=== PATIENT | male | born 1945 | race Caucasian/White ===

== ENCOUNTER 2017-04-30 08:30 | Inpatient (IN) | payer OTHER, MEDICARE, BC ==
[~2017-04-30] VITALS: Ht 172.7 cm; Wt 104.7 kg
--- NOTE | ~2017-04-30 | OR ---
PATIENT'S NAME: KEVIN EUBANKS [facility] AGE: 72 Y [address] ROOM: [address] [address] [place] [facility] [place]: 04/30/2017 OR/Procedure Report DISCHARGE DATE: 05/02/2017 FAMILY PHYSICIAN: Bryan Cruz MD ATTENDING PHYSICIAN: Eren Carranza SURGEON: Oliver Santana MD FRAMING CARPENTER: DATE OF PROCEDURE: 04/30/2017 REFERRING PHYSICIAN: Martine Belle APRN, [place] PREOPERATIVE DIAGNOSIS: Acute appendicitis. POSTOPERATIVE DIAGNOSIS: Acute suppurative appendicitis. PROCEDURE: Laparoscopic appendectomy. ANESTHESIA: General with 15 mL of 0.5% Marcaine. SPECIMEN: Appendix. INDICATIONS: The patient is a 72-year-old young man, who presented to Martine Belle APRN, nurse practitioner in [place] with a less than 24-hour history of abdominal pain, which settled in the right lower quadrant, CT confirmation of acute appendicitis. However, the patient [place] [address]. We admit him to the hospital. We waited until the 24 hour. After his last dose which was approximately 8:00 p.m. this evening. At that time, we elected to avoid rupture. We elected to proceed with laparoscopic appendectomy. The procedure, benefits, and risks including his increased risk of bleeding complications were explained to the patient. DESCRIPTION OF PROCEDURE: After informed consent, the patient was taken to the operating room. After general endotracheal anesthesia, the patient's abdomen was prepped and draped into a sterile field. Local anesthetic infiltrated. Prior to each incision, the first one made below the umbilicus, carried down to identify the anterior fascia through which a Veress needle inserted. Pneumoperitoneum created. A 5-mm trocar and laparoscope inserted. Safe entry was noted. Right upper quadrant 5 mm and suprapubic 12 mm port were placed. The appendix was obviously inflamed and suppurative findings around it. Once we elevated up the dilated appendix, we were able to create a window at the base of the appendix and divided the mesoappendix with the Endo- MARINA 35. The appendiceal stump was then exposed and then divided with the Endo- MARINA 35 clip. The appendix was placed into an EndoCatch bag and brought out through the 12 mm fascia defect. We irrigated the right lower quadrant with the 2 L of irrigation fluid until clear. Hemostasis noted. No other PATIENT'S NAME: KEVIN EUBANKS [facility] AGE: 72 Y [address] ROOM: [address] [address] [place] [facility] [place]: 04/30/2017 OR/Procedure Report DISCHARGE DATE: 05/02/2017 FAMILY PHYSICIAN: Bryan Cruz MD ATTENDING PHYSICIAN: Eren Carranza pathology evident in the right lower quadrant. The trocars were removed. The pneumoperitoneum released. The 12 mm port site was closed with 0 Vicryl and skin incision was closed subcuticular 4-0 Vicryl. Steri-Strips sterile dressings applied. The patient tolerated procedure well and transferred to recovery in stable condition. OLIVER SANTANA MD WTS/modl /[id number] d: 05/05/17 1051 t: 05/07/17 1744, OPERATIVE SUMMARY
--- NOTE | ~2017-04-30 | HP ---
PATIENT'S NAME: KEVIN EUBANKS [facility] AGE: 72 Y [address] ROOM: [address] [address] LOCATION: [facility] [place] ADMIT DATE: 04/30/2017 History & Physical DISCHARGE DATE: FAMILY PHYSICIAN: Bryan Cruz MD ATTENDING PHYSICIAN: RENUKA CARRANZA DATE OF SERVICE: 04/30/2017 CHIEF COMPLAINT: Acute appendicitis. HISTORY OF PRESENT ILLNESS: This is a 72-year-old male with a history of chronic tobacco use and COPD as well as atrial fibrillation, on Eliquis; who experienced extreme right lower quadrant pain starting last night around 5 o'clock. He walked himself to his local emergency room where a CT scan showed acute appendicitis and leukocytosis. The patient denies any fevers or chills. He denies any associated nausea or vomiting. He states his right lower quadrant pain is nonradiating. It is relative well controlled at rest, but as soon as it is palpated, has extreme painfulness. He also complains of feeling constipated, but did have a bowel movement yesterday. Of important note, his last dose of Eliquis was taken last night at 8:00 p.m. The patient denies any lightheadedness or dizziness. No recent weight loss or weight gain. No fevers or chills. No recent illnesses. He does not complaint any sore throat. He does have a chronic cough that is occasionally productive, but no acute problems. He denies any shortness of breath, but does gets dyspnea on exertion, but can typically walk at least 2 to 3 blocks without stopping. He denies any chest pain, palpitations, or fluttering feelings. He denies any history of heart murmurs. Abdominal complaints as above with no history of melena or infectious diarrhea. He does have a history of BPH, but denies any urgency or nocturnal frequency. He denies any burning or painfulness with urination. He does complain of general arthritic pains in multiple joints, but is nonlimiting. He denies any numbness or tingling anywhere. He is a relatively active and independent 72-year-old male. REVIEW OF SYSTEMS: All review of systems was completed and deemed negative other than mentioned above in the HPI. ALLERGIES: NO KNOWN MEDICAL ALLERGIES. HOME MEDICATIONS: PATIENT'S NAME: KEVIN EUBANKS [facility] AGE: 72 Y [address] ROOM: [address] [place] [address] LOCATION: [facility] [place] ADMIT DATE: 04/30/2017 History & Physical DISCHARGE DATE: FAMILY PHYSICIAN: Bryan Cruz MD ATTENDING PHYSICIAN: RENUKA CARRANZA 1. Acetaminophen 1000 mg p.o. every 6 hours as needed. 2. Albuterol HFA inhaler 2 puffs inhalation 4 times daily as needed for shortness of breath. 3. Amlodipine 5 mg p.o. every day. 4. Eliquis 5 mg p.o. twice daily. Note last taken dose at 8:00 p.m. on 04/29/2017. 5. Ascorbic acid 500 mg p.o. every day. 6. Excedrin Extra Strength, 1 tablet p.o. twice daily as needed. 7. Atorvastatin 10 mg p.o. every night at bedtime. 8. Symbicort 160/4.5 mcg inhaler 2 puffs inhalation twice daily. 9. Vitamin D3, 1000 units p.o. every day. 10. Flexeril 10 mg p.o. 3 times daily. 11. Ferrous sulfate 325 mg p.o. daily. 12. Osteo Bi-Flex 1 tablet p.o. every day as needed. 13. Lisinopril and hydrochlorothiazide 20/25 mg 1 tablet p.o. every day. 14. Multivitamin 1 tablet p.o. every day. 15. Aleve PM 2 tablets p.o. every night at bedtime as needed. 16. Aleve 440 mg p.o. twice daily as needed. 17. Ohiopyle-3 fatty acid (fish oil) capsule 1000 mg p.o. every day. PAST MEDICAL HISTORY: To include: 1. COPD. 2. Atrial fibrillation, on long-term anticoagulation. 3. Hyperlipidemia. 4. Essential hypertension. 5. BPH. 6. Tobacco use. 7. Alcohol use. 8. Obesity with BMI of 35.1. PAST SURGICAL HISTORY: 1. Right ankle ORIF. 2. TURP. 3. Basal cell carcinoma removal. SOCIAL HISTORY: Relatively independent and retired 72-year-old male, who lives in [place], [place], who has spent most of his life in [place] working in [employer]. He is a chronic smoker which he started at the age of 33, smoking a pack a day, but has recently backed off and he smokes only about a pack a week. He does use alcohol typically 4 days a week. He has multiple drinks of whiskey 4 to 6 in quantity. His last drink was a beer last night. He denies any illicit drug use. PATIENT'S NAME: KEVIN EUBANKS [facility] AGE: 72 Y [address] ROOM: [address] [place], [place] [address] LOCATION: [facility] [place] ADMIT DATE: 04/30/2017 History & Physical DISCHARGE DATE: FAMILY PHYSICIAN: Bryan Cruz MD ATTENDING PHYSICIAN: RENUKA CARRANZA FAMILY HISTORY: The patient has two brothers who underwent coronary artery bypass. Otherwise, reviewed and deemed noncontributory. There is no family cancer. PHYSICAL EXAMINATION: GENERAL: This is a 72-year-old obese white male, who appears and looks his stated age. HEENT: His head is normocephalic and atraumatic. Eyes; extraocular movements are intact. His pupils are equal, round, and reactive to light and accommodation. His oropharynx is visualized with good dentition. Mucosa is moist. NECK: Supple. LUNGS: Reveal a faint expiratory wheeze in the bilateral lower lobes, but otherwise, rest is clear. He has equal and symmetric expansion and unlabored breathing pattern. HEART: Irregularly irregular. No gallops. No murmur noted. He has trace pedal edema bilaterally to his lower extremities. No JVD. GASTROINTESTINAL: His abdomen is round and relatively soft. He does complain of significant point tenderness in the right lower quadrant with light palpation. Worsening with deeper palpation. He has no CVA tenderness. He does have bowel sounds in each quadrant. GENITOURINARY: Deferred. EXTREMITIES: Reveal no clubbing or cyanosis. He does have soft bilateral calves. He has a right ankle deformity. Peripheral pulses are 2+. SKIN: Reveals a small scabbed area on his right knee that appears to be healing. PSYCHIATRIC: Mood is good. LABORATORY DATA: From outlying facility shows a lactic acid of 1.4. CMS panel shows a sodium of 136, potassium 4.0, chloride of 96, carbon dioxide of 27, glucose of 129, BUN of 14, creatinine of 0.90, and calcium of 10.4. Protein was 7.8, albumin of 4.0, and bilirubin of 0.9. ALT 40, AST of 26, and alkaline phosphatase of 87. Amylase was 65 and lipase was 45. CBC shows a white blood cell count of 24.1 with granulocytes shifted at 84%. His hemoglobin is 14.8, hematocrit of 44.0, and platelet count of 298,000. Urinalysis shows yellow, hazy urine with a negative glucose, negative bilirubin, and negative ketones. Specific gravity of 1.015, negative for blood, and negative for protein. There were no nitrites, leukocytes, yeasts, mucus, or bacteria noted. DIAGNOSTIC STUDIES: 1. EKG shows atrial fibrillation with a rate of 98 beats per minute. No acute ST changes noted. PATIENT'S NAME: KEVIN EUBANKS [facility] AGE: 72 Y [address] ROOM: [place] [address] LOCATION: [facility] [place] ADMIT DATE: 04/30/2017 History & Physical DISCHARGE DATE: FAMILY PHYSICIAN: Bryan Cruz MD ATTENDING PHYSICIAN: RENUKA CARRANZA 2. A CT scan of the abdomen and pelvis reveals a dilated, inflamed, fully filled appendix up to 17 mm in diameter with mild adjacent inflammatory fat induration. Other significance, he has mild prostate hypertrophy and left colonic diverticulosis. IMPRESSION AND PLAN: This is a 72-year-old male who will be admitted to be inpatient in the Medical- Surgical unit with acute appendicitis: 1. Acute appendicitis, needs an urgent appendectomy. However, because the patient is on Eliquis with the last dose being at 8:00 p.m., it would be okay to proceed to surgery in 24 to 48-hour window. He will need to be kept nothing by mouth and hydrated with IV fluids. We will start him on Zosyn 3.375 mg every 6 hours and give IV pain medicine support with morphine. We will also further evaluate laboratories to ensure he is optimal for expected surgery. 2. Sepsis secondary to acute appendicitis. Plan for urgent appendectomy as above. 3. Paroxysmal atrial fibrillation, while on Eliquis. We will continue to rate control his arrhythmia. We will optimize his electrolytes. We will keep him on telemetry and monitor accordingly. Would recommend resuming his Eliquis in the 24 to 48-hour period postoperatively. 4. Chronic obstructive pulmonary disease. We will go ahead and continue his home inhalers to include Symbicort as scheduled as well as his rescue inhaler of albuterol. We will encourage good pulmonary toileting education and monitor for any signs of exacerbation. 5. Essential hypertension. To continue his home amlodipine and monitor his pressures. We will hold on his home lisinopril and hydrochlorothiazide for now and resume postoperatively or when appropriate. 6. Hyperlipidemia. We will give him lifestyle and diet and exercise modification education as well as to continue his statin for now. We will hold on his fish oil. 7. Tobaccoism. Cessation education was given. Offered nicotine patch and he refused at this point in time. 8. Obesity with a BMI of 35.1, lifestyle and diet modification education. 9. Alcohol use. He does consume more than the recommended daily amount. He has never had any withdrawal in the past, but, however, needs to be closely observed during his hospitalization for withdrawal. 10. History of benign prostatic hypertrophy. 11. General arthritis, unspecified sites. We will continue to use multivitamin supplementation as well as general pain support. 12. Deep venous thrombosis prophylaxis. Will be maintained with pneumatic compression devices as anticoagulation is contraindicated with planned procedure. 13. Code Status: Full code. The above line of management was discussed with the patient as well reviewed PATIENT'S NAME: KEVIN EUBANKS [facility] AGE: 72 Y [address] ROOM: [place] [address] LOCATION: [facility] [place] ADMIT DATE: 04/30/2017 History & Physical DISCHARGE DATE: FAMILY PHYSICIAN: Bryan Cruz MD ATTENDING PHYSICIAN: RENUKA CARRANZA with Dr. Carranza. All questions were answered with statements of satisfaction. Dr. Lara has already seen the patient, and consultation for surgical needs. RODRÍGUEZ GOMEZ APRN, APRN FOR MD KIT DUMONT/kareen /[id number] D: 83 HISTORY & PHYSICAL
--- NOTE | ~2017-04-30 | CON ---
PATIENT'S NAME: GRADY EUBANKS [facility] AGE: 72 Y [address] ROOM: [place] [address] LOCATION: [facility] [place] ADMIT DATE: 04/30/2017 Consultation DISCHARGE DATE: FAMILY PHYSICIAN: Bryan Cruz MD ATTENDING PHYSICIAN: RENUKA AMARO DATE OF CONSULTATION: 04/30/2017 REFERRING PHYSICIAN: JORGE ALBERTO PAINTER MD REASON FOR CONSULTATION: Acute appendicitis. HISTORY OF PRESENT ILLNESS: Grady Eubanks is a 72-year-old male who transferred to [facility] from [place] today after a CT scan showed acute appendicitis. The patient states that he was in his usual state of health yesterday, but around 5 p.m., he started to not feel well. By 7 p.m., he had pain in the right lower quadrant. Denies any nausea or vomiting. Has not passed any flatus today. No bowel movement today. He has been voiding okay. The patient was seen in [place] where white blood cell count was elevated at 24,100. Liver function tests were normal. The patient had a CT scan done that showed a dilated, inflamed, fluid-filled appendix up to 17 mm in diameter with mild adjacent inflammatory fat induration. The appendix is located in the anterior right lower quadrant medial and inferior to the cecum. No free intraperitoneal air, free fluid, or abscess was seen. The prostate was mildly enlarged at 5 cm. The patient was transferred to [facility] for further evaluation and surgical treatment options. It is noted that the patient is on Eliquis and took his last pill at 8 p.m. last evening. PAST MEDICAL HISTORY: ALLERGIES: NONE. MEDICATIONS: Include: 1. Lisinopril/hydrochlorothiazide one tablet p.o. daily. 2. Lipitor 10 mg p.o. q.h.s. 3. Norvasc 5 mg p.o. daily. 4. Multivitamin one tablet p.o. daily. 5. Glucosamine one tablet p.o. daily. 6. Tylenol Extra Strength 1000 mg p.o. q.6 hours p.r.n. pain. 7. Excedrin Extra Strength one tablet p.o. b.i.d. p.r.n. pain. 8. Aleve PM 2 tablets p.o. q.h.s. p.r.n. insomnia. 9. Ferrous sulfate 325 mg p.o. daily. PATIENT'S NAME: GRADY EUBANKS [facility] AGE: 72 Y [address] ROOM: [address] [place], [place] [address] LOCATION: [facility] [place] ADMIT DATE: 04/30/2017 Consultation DISCHARGE DATE: FAMILY PHYSICIAN: Bryan Cruz MD ATTENDING PHYSICIAN: RENKUA AMARO 10. Fish oil 1000 mg p.o. daily. 11. Aleve 440 mg p.o. b.i.d. p.r.n. pain. 12. Ascorbic acid 500 mg p.o. daily. 13. Flexeril 10 mg p.o. t.i.d. p.r.n. pain. 14. Eliquis 5 mg p.o. b.i.d. 15. Proventil 2 puffs inhaler q.i.d. p.r.n. shortness of breath. 16. Symbicort 2 puffs inhaler b.i.d. 17. Vitamin D3 at 1000 units p.o. daily. ILLNESSES: Include hypertension, hypercholesterolemia, COPD, atrial fibrillation, and skin cancer on the nose. OPERATIONS: Transurethral resection of the prostate, excision of the skin cancer from the tip of his nose, and ankle fracture. The patient states that he has never had a colonoscopy done, but has had a partial scope, which I assume is a flexible sigmoidoscopy. FAMILY HISTORY: Two brothers had myocardial infarctions at the age of 64. SOCIAL HISTORY: The patient is single. He lives in [place], [place], [facility]. He is retired from [employer] in [place], [place]. He currently smokes less than a pack of cigarettes per week. He had a maximum of a pack per day at one point in his life. He drinks alcohol, 3 to 4 alcoholic beverages 3 to 4 nights per week. REVIEW OF SYSTEMS: The patient states that he was doing fairly well until this happened last evening. His weight has increased with decreased activity due to pain in his knees and ankles from arthritis. His appetite had been good. He denies any recent sinus congestion, ear pain, or throat pain. Denies shortness of breath. He states that he is able to mow his yard without difficulty. Denies chest pain. Denies change of bowel habits or blood in his stool. He has been voiding well. PHYSICAL EXAMINATION: VITAL SIGNS: Per nursing sheet. GENERAL: A 72-year-old male who is alert, oriented, pleasant, cooperative, in good spirits. HEENT: Eyes, ears, nose, and throat are grossly normal. Teeth have poor dentition. LUNGS: Diminished bilaterally with mild expiratory wheeze noted on the right PATIENT'S NAME: GRADY EUBANKS [facility] AGE: 72 Y [address] ROOM: [address] [address] LOCATION: [facility] [place] ADMIT DATE: 04/30/2017 Consultation DISCHARGE DATE: FAMILY PHYSICIAN: Bryan Cruz MD ATTENDING PHYSICIAN: RENUKA AMARO side more than the left. HEART: Irregular. ABDOMEN: Quiet. Mild distention with tenderness in the right lower quadrant. Localized peritoneal signs. NEUROLOGIC: The patient appears to move extremities equally. LABORATORY WORK: White blood cell count 24.1, hemoglobin 14.8, hematocrit 44, and platelets 298. Sodium 136, potassium 4.0, chloride 96, CO2 of 27, glucose 129, BUN 14, and creatinine 0.9. Total bilirubin 0.9. Alkaline phosphatase 87, AST 26, and ALT 40. Amylase [address] scan per HPI. ASSESSMENT: A 72-year-old male with: 1. Acute appendicitis. 2. Atrial fibrillation, on Eliquis. 3. Chronic obstructive pulmonary disease. 4. Hypertension. 5. Hypercholesterolemia. PLAN: I discussed with the patient the findings of appendicitis on his CT scan. Dr. Santana had actually evaluated the patient earlier and had discussed with him the findings and recommendations. After discussion with the hospitalist, it is best to wait at least 24 hours for the Eliquis if we can. At this time, we are trying to decide what is going to be best in regard to bleeding risk versus risk for perforated appendicitis. Dr. Santana will review over the CT imaging and make a decision on whether we proceed this evening or tomorrow morning. I discussed with the patient risk of bleeding, risk of infection, risk of injury to other structures, heart problems, lung problems, etc. I discussed the laparoscopic approach. I discussed the potential need for blood transfusion as sometimes patients on blood thinners will ooze after the procedure and not necessarily during. He could potentially form a hematoma that could get infected and needs to be drained. I discussed that typically a person with uncomplicated appendicitis could potentially go home within 24 hours after surgery, but given the Eliquis, he may need to be observed for a longer period. The patient's questions and concerns were addressed. Again, Dr. Santana was involved in the assessment and plan and is available for supervision. EDWAR ARCE PA-C FOR JAVON SANTANA MD PATIENT'S NAME: GRADY EUBANKS [facility] AGE: 72 Y [address] ROOM: [place] [address] LOCATION: [facility] [place] ADMIT DATE: 04/30/2017 Consultation DISCHARGE DATE: FAMILY PHYSICIAN: Bryan Cruz MD ATTENDING PHYSICIAN: RENUKA AMARO/kareen /[id number] d: 04/30/17 1528 t: 05/07/17 1747, CONSULTATION REPORT
--- NOTE | ~2017-04-30 | DS ---
PATIENT'S NAME: KEVIN EUBANKS [facility] AGE: 72 Y [address] ROOM: [place] [id number] LOCATION: [facility] ADMIT DATE: 04/30/2017 Discharge Summary DISCHARGE DATE: 05/02/2017 FAMILY PHYSICIAN: Bryan Cruz MD ATTENDING PHYSICIAN: Eren Carranza FINAL DIAGNOSES: 1. Acute suppurative appendicitis, status post laparoscopic appendectomy. 2. Sepsis. 3. Chronic atrial fibrillation. 4. Chronic obstructive pulmonary disease. 5. Essential hypertension. 6. Obesity. CONSULTANTS ON THE CASE: Dr. Lara. HOSPITAL COURSE: Please see details of admission H and P by Mauricio Pat. Briefly, the patient was admitted with extreme right lower quadrant abdominal pain. CT scan showed appendicitis. The patient was admitted and evaluated preoperatively by Dr. Carranza. The patient does have atrial fibrillation and is on Eliquis, last dose being at 8:00 p.m. the night before. It was recommended that the procedure wait 24-48 hours due to increased risk of bleeding. Surgery consulted on 04/30 and felt that they could proceed, thus being 24 hours after the last dose, either the night of 04/30 or the morning of 05/01. After further evaluation due to the intensity of the appendicitis, it was planned for a p.m. surgery on 04/30. Zosyn was started from admission. Fentanyl was utilized for pain management. Surgery was performed on 04/30/2017 with laparoscopic appendectomy. No complications. Medications were resumed. It was felt that the patient should hold his Eliquis until discharge. The patient did have some wheezing in his lungs, and nebulizer treatments were initiated. On the morning of 05/02, the patient was back to room air, he was ambulating without difficulty, and his pain was well controlled. He was tolerating a regular diet and passing flatus. It was felt that the patient could safely be discharged home on oral antibiotics. DIAGNOSTICS: On admission, white blood cell count was 17.4, hemoglobin 13, hematocrit 38.7, platelets 273. On the day of discharge, white blood cell count was 18,000, hemoglobin 12.6, hematocrit 37.8, platelets 260. On admission, sodium 137, potassium 4.2, chloride 99, bicarb 28, glucose 148, BUN 11, creatinine 1.0, total bilirubin was 0.8, mag was 2.2. These labs remained stable throughout his stay. PATIENT'S NAME: KEVIN EUBANKS [facility] AGE: 72 Y [address] ROOM: [id number] [place], [place] [address] LOCATION: [facility] ADMIT DATE: 04/30/2017 Discharge Summary DISCHARGE DATE: 05/02/2017 FAMILY PHYSICIAN: Bryan Cruz MD ATTENDING PHYSICIAN: Eren Carranza DISCHARGE INSTRUCTIONS: The patient is discharged home. He is to follow up with Dr. Lara in 7-10 days. No lifting greater than 20 pounds. Diet is as tolerated. He is to remove his dressing in 2-3 days. The patient will also follow up with Dr. Cruz in one week. The patient was able to verbalize understanding of these discharge instructions and was discharged in stable condition. MEDICATIONS: 1. Norvasc 5 mg daily. 2. Lisinopril/hydrochlorothiazide 20/25 one tab daily. 3. Lipitor 10 mg at bedtime. 4. Multivitamin 1 tab daily. 5. Osteo Bi-Flex one tab daily. 6. Tylenol 1000 mg every 6 hours as needed. 7. Excedrin one tab twice daily as needed. 8. Naproxen two tabs at bedtime as needed. 9. Ferrous sulfate 325 mg daily. 10. Fish oil 1000 mg daily. 11. Naproxen 440 mg twice daily as needed. 12. Ascorbic acid 500 mg daily. 13. Flexeril 10 mg three times daily as needed. 14. Apixaban 5 mg twice daily. 15. Proventil 2 puffs four times daily as needed. 16. Symbicort 160/4.5 two puffs twice daily. 17. Vitamin D3, 1000 units daily. 18. Augmentin 875 one tab twice daily for 7 days. 19. Ajo 5/325 one to two tabs every 4 hours as needed for pain. We do appreciate participating in this patient's care. Thank you very much for the ability to serve him while hospitalized at [facility]. Time spent coordinating details of discharge was less than 30 minutes of which was spent coordinating with consulting physicians and Care Management, completion of medication reconciliation, education to the patient and family on the above-mentioned diagnoses. [facility] FABR[facility] DONALDSON/kareen /[id number] d: 05/08/175 t: 05/08/17 0842, DISCHARGE SUMMARY
[~2017-04-30 08:30] MED LIST: LIPITOR20 M1 PO; LISINOPRIL-HCT1 EAC2 PO; NORVASC10 MG PO; OSTEO BI-FLEX1 EAC1 PO; THERA-VITE W/ B1 TAB PO; TYLENOL WITH C1 EACH PO
[2017-04-30] MEDS ORDERED: EXCEDRIN EXTRA1 TAB PO (10:20)
[2017-04-30] MEDS ORDERED: TYLENOL EXTRA500 MG PO (10:20)
[2017-04-30] MEDS ORDERED: ALEVE PM CAPLE1 EACH PO (10:21)
[2017-04-30] MEDS ORDERED: ALEVE220 M1 PO (10:21)
[2017-04-30] MEDS ORDERED: FISH OIL 1,0001 EACH PO (10:21)
[2017-04-30] MEDS ORDERED: FERROUS SULFAT325 MG PO (10:21)
[2017-04-30] MEDS ORDERED: ASCORBIC ACID500 MG PO (10:22)
[2017-04-30] MEDS ORDERED: PROVENTIL OR V6.7 GM INH (10:23)
[2017-04-30] MEDS ORDERED: ELIQUIS5 MG PO (10:23)
[2017-04-30] MEDS ORDERED: FLEXERIL10 MG PO (10:23)
[2017-04-30] MEDS ORDERED: VITAMIN D31000 UNIT PO (10:24)
[2017-04-30] MEDS ORDERED: SYMBICORT 16010.2 GM INH (10:24)
--- NOTE | 2017-04-30 10:26 | NUR ---
Pt is 72 y/o male admit for appendicitis/R)lower quad pain for hospitalist. to consult for surgery. Pt alert and oriented x3. Resides at home by himself. No allergies. Yellow bracelet on. 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 Pt states yesterday around 1700, he started to feel very weak and not good in general. He tried to eat supper but started getting R)abd pain. Came from [place] this am via family car. Pt takes Eloquis BID. Last dose was last night. Plan for surgery tmw am.
[2017-04-30 12:46] LABS: INR - (THERAPEUTIC) 1.08 (0.92-1.07); PROTIME 11.3 SECONDS (9.8-11.4)
--- NOTE | 2017-04-30 19:22 | NUR ---
Significant Event: PT AO. VSS ON RA, AFEBRILE. IVF RUNNING TO L HAND, NS @ 150ML/HR. PT NPO. PERMITS SIGNED FOR LAP MARICARMEN STANTON PER DR SANTANA. PT UP INDEPENDENT IN ROOM. STATES PAIN IS TOLERABLE, NO NAUSEA. TELEMETRY ON WITH NO CALLS. Follow up: SURGERY [facility]
--- NOTE | 2017-05-01 04:03 | NUR ---
Significant Event: pt is a/o x3. pt slept in chair, no c/o pain. lap sites x3, dressing to unbilicus was saturated, dressing changed. iv started to r hand in surgery was accidentally pulled out when getting pt up. pt on tele w/ no calls, pt is in a-fib. pt was hypertensive when he returned to the floor but has come down to the 130's sbp. afebrile. pt is a sba when up. pt is on 3 l per nc sats in the low 90's, encourage to ambulate and wean o2. Follow up:possible discharge home later today.
[2017-05-01 05:44] LABS: BASOPHIL % 0.2 %; HEMATOCRIT 38.7 % (37.0-53.0); IMMATURE GRANULOCYTE # 0.1 K/uL (0.0-0.3); IMMATURE GRANULOCYTE % 0.7 %; LYMPHOCYTE # 1.3 K/uL (0.8-4.0); LYMPHOCYTE % 7.2 %; MCH 31.6 pg (27.0-34.0); MCHC 33.6 gm/dL (32.0-36.5); MCV 94.2 fl (83.0-98.0); MONOCYTE # 0.7 K/uL (0.0-1.0); MONOCYTE % 3.9 %; MPV 9.5 fl (9.4-12.4); NEUTROPHIL # (ANC) 15.3 K/uL (1.4-9.0); NRBC % 0 /100WBC (0-0.00); PLATELET COUNT 273 K/uL (150-450); RBC 4.11 M/uL (3.50-5.50); RDW-CV 13.9 % (11.9-14.6)
[2017-05-01 05:45] LABS: WBC 17.4 K/uL (4.0-11.0)
[2017-05-01 06:03] LABS: ALBUMIN 3.2 gm/dL (3.5-5.0); ALK PHOS 64 IU/L (33-138); ALT 27 IU/L (12-78); ANION GAP 14.2 (10.0-19.0); AST 16 IU/L (10-40); BLOOD UREA NITROGEN 11 mg/dL (6-24); CALCIUM 8.6 mg/dL (8.5-10.5); CHLORIDE 99 mMol/L (96-110); CO2 28 mMol/L (22-32); ESTIMATED GFR (MDRD EQUATION) > 60; MAGNESIUM 2.2 mg/dL (1.8-2.6); POTASSIUM 4.2 mMol/L (3.7-5.1); SODIUM 137 mMol/L (135-145); TOTAL BILIRUBIN 0.8 mg/dL (0.0-1.5); TOTAL PROTEIN 7.1 g/dL (6.0-8.4)
--- NOTE | 2017-05-01 17:15 | NUR ---
Significant Event: PT AO. VSS, TITRATED TO ROOM AIR. AMBULATES IN ROOM INDEPENDENTLY, UP IN [place] WITH SUPERVISION. LAP SITES X3 TO ABDOMEN, DRESSINGS INTACT. TOLERATING REGULAR DIET. BS +, NO BM THIS SHIFT. DENIES PAIN AND NAUSEA. CONTINUES ON IV ABX, OTHERWISE IV TO L HAND SALINE LOCKED. Follow up: POSSIBLE DISCHARGE TOMORROW, AMBULATE IN HALLS.
--- NOTE | 2017-05-01 17:23 | NUR ---
Introduced self and care management services to patient. Lives in [place] alone. Plans on going home on discharge, was hoping to go today but won't. Denies concerns about going home on discharge, denies needs. Says he has friends he can call to help him if needs anything. Independent at home. Will follow.
--- NOTE | 2017-05-01 17:33 | NUR ---
I HAVE REVIEWED AND AGREE WITH CHARTING COMPLETED BY [facility] STUDENT FEDE GOLDEN FROM [phone] ROSARIO ROSE
--- NOTE | 2017-05-02 02:24 | NUR ---
Significant Event: Patient alert and oriented X4. Up ad radhames in room. Walked X1 in halls. Tolerated well. L) hand IV with intermittent zosyn. 1 Beeler given around 1920. Relief noted. 3 lap sites, small amount drainage noted. PNeumatics on. Hoping to discharge today if WBC is down. Follow up: Monitor WBC
[2017-05-02 05:48] LABS: BASOPHIL # 0.1 K/uL (0.0-0.2); BASOPHIL % 0.3 %; EOSINOPHIL # 0.1 K/uL (0.0-0.5); EOSINOPHIL % 0.7 %; HEMATOCRIT 37.8 % (37.0-53.0); HEMOGLOBIN 12.6 g/dL (11.0-16.0); IMMATURE GRANULOCYTE # 0.1 K/uL (0.0-0.3); IMMATURE GRANULOCYTE % 0.7 %; LYMPHOCYTE # 2.4 K/uL (0.8-4.0); LYMPHOCYTE % 12.9 %; MCH 31.6 pg (27.0-34.0); MCHC 33.3 gm/dL (32.0-36.5); MCV 94.7 fl (83.0-98.0); MONOCYTE # 1.5 K/uL (0.0-1.0); MONOCYTE % 8.4 %; MPV 9.8 fl (9.4-12.4); NEUTROPHIL # (ANC) 14.1 K/uL (1.4-9.0); NRBC % 0 /100WBC (0-0.00); PLATELET COUNT 260 K/uL (150-450); RBC 3.99 M/uL (3.50-5.50); RDW-CV 13.9 % (11.9-14.6)
[2017-05-02 05:49] LABS: WBC 18.3 K/uL (4.0-11.0)
[2017-05-02 06:04] LABS: BLOOD UREA NITROGEN 11 mg/dL (6-24); CALCIUM 8.8 mg/dL (8.5-10.5); CHLORIDE 103 mMol/L (96-110); CO2 28 mMol/L (22-32); CREATININE 0.9 mg/dL (0.6-1.3); ESTIMATED GFR (MDRD EQUATION) > 60; SODIUM 137 mMol/L (135-145)
[2017-05-02] MEDS ORDERED: NORCO 5-325 TA1 EACH PO (10:39)
[2017-05-02] MEDS ORDERED: AUGMENTIN 875-1 EACH PO (10:41)
--- NOTE | 2017-05-02 13:10 | NUR ---
D: ORDERS RECEIVED FOR THE PATIENT TO BE DISCHARGE TO HOME TODAY AFTER SEEN BY THE HOSPITALIST. I: DISMISSAL INSTRUCTIONS WERE PREPARED AND REVIEWED WITH THE PATIENT VIRTUALLY. THE FOLLOWING INFORMATION WAS DISCUSSED INCLUDING [employer] TEACHING SHEETS PROVIDED: NORCO, DISHCARGE INSTRUCTIONS FOR LAP APPENDECTOMY, DISCHARGE INSTRUCTIONS FOR INCISION CARE, AUGMENTIN, AND PREVENTING DVT. REVIEWED THAT THE PATIENT WILL NEED TO TAKE HIS PRESCRIPTION FOR NORCO TO THE PHARMACY TO BE FILLED AFTER BEING DISCHARGE. R: THE PATIENT VERBALIZED UNDERSTANDING OF THE DISMISSAL EDUCATION AT THE TIME TEACHING WITH NO FURTHER QUESTIONS. P: THE ABOVE INFORMATION WAS SHARED WITH THE PRIMARY NURSE AND THE CHARGE NURSE THAT THE DISMISSAL EDUCATION WAS COMPLETED. THE PATIENT IS READY FOR DICHARGE TO THE FRONT DOOR VIA WHEEL CHAIR BY NURSING STAFF AFTER SEEING DR. AMES THIS AFTERNOON.
--- NOTE | 2017-05-02 15:25 | NUR ---
I HAVE REVIEWED AND AGREE WITH CHARTING COMPLETED BY [facility] STUDENT FEDE GOLDEN FROM [phone] ROSARIO ROSE
== END 2017-05-02 14:32 | disposition disaster alternative care site (69) | DRG 854 ==
LOC: GMSU 09:21
PROVIDERS: Internal Medicine; Nurse Practitioner Family; Physician Assistant; ADMIT Internal Medicine
PROC: 0DTJ4ZZ Resection of Appendix, Percutaneous Endoscopic Approach (ICD-10-PCS; principal; 2017-04-30)
DX: A41.9 Sepsis, unspecified organism (principal); K35.80 Unspecified acute appendicitis; I48.0 Paroxysmal atrial fibrillation; J44.9 Chronic obstructive pulmonary disease, unspecified; I10 Essential (primary) hypertension; F17.210 Nicotine dependence, cigarettes, uncomplicated; E66.9 Obesity, unspecified; M19.90 Unspecified osteoarthritis, unspecified site; E78.5 Hyperlipidemia, unspecified; E78.00 Pure hypercholesterolemia, unspecified; Z85.828 Personal history of other malignant neoplasm of skin; Z68.35 Body mass index [BMI] 35.0-35.9, adult; Z79.01 Long term (current) use of anticoagulants; Z72.89 Other problems related to lifestyle; I48.2 Chronic atrial fibrillation
CPT/HCPCS: J2543; J7030; J7050; J7120